=== PATIENT | male | born 1980 | race Caucasian/White ===

== ENCOUNTER 2021-10-13 22:33 | Emergency (ER) | payer OTHER ==
[~2021-10-13] VITALS: Ht 185.4 cm; Wt 86.2 kg
== END 2021-10-14 00:03 | disposition left against medical advice (07) ==
LOC: ED 22:33
DX: R07.81 Pleurodynia (principal); W51.XXXA Accidental striking against or bumped into by another person, initial encounter; Y93.89 Activity, other specified; Y92.89 Other specified places as the place of occurrence of the external cause; Y99.8 Other external cause status

== ENCOUNTER 2021-10-14 10:14 | Emergency (ER) | payer OTHER ==
[~2021-10-14] VITALS: Ht 185.4 cm; Wt 86.2 kg
== END 2021-10-14 11:28 | disposition home or self-care (01) ==
LOC: ED 10:14
DX: R07.81 Pleurodynia (principal)